=== PATIENT | female | born 1940 ===

== ENCOUNTER 2017-07-04 03:15 | Inpatient (IN) | payer MEDICARE, MEDICAID ==
--- NOTE | 2017-07-04 04:15 | ED PDOC ---
HPI: General Adult Chief Complaint (Provider): generalized body pain History Per: Patient Onset/Duration Of Symptoms: Waxing/Waning Current Symptoms Are (Timing): Still Present Severity: Moderate Location: migratory; neck, throat, abdomen, knees, feet Quality: aching <Dina Roy - Last Filed: 07/04/17 06:49> <Angel Lance Y - Last Filed: 07/04/17 07:01> Time Seen by Provider: 07/04/17 03:37 Chief Complaint (Nursing): Flu-like Symptoms Additional Complaint(s): Salima Hines is a 77 yo female with PMH hypertension, hyperlipidemia, prediabetes ( as per pt), who presented to ED today, 07/04/17 with generalized migratory body pains; was found to have elevated BP at triage. She states that the pain has been present for about 1 week, but it got worse today, which prompted her to come to the ED. States the pain moves from her neck/throat to her abdomen, so the knees, to feet. States she feels a "hotness" in her mouth, but denies that it feels like acid/heartburn. Admits to long standing constipation, as well as new onset with this problem nausea. Denies chest pain, shortness of breath, diarrhea, vomiting, urinary issues including burning. PMH: HTN, HLD, prediabetes Past Surg hx: tonsillectomy in childhood Fam hx: noncontributory Social hx: denies tobacco, alcohol, illicit drug use Allergies: aspirin Medications (brought to ED by pt): Carvedilol 3.125 mg twice daily HCTZ 12.5 mg once daily Clonidine 0.2 mg once daily Amlodipine 5 mg once daily Januvia 50 mg once daily Atorvastatin 40mg once daily Vitamin D-1,25 50,000 u once weekly (Dina Roy) Past Medical History - Medical History PMH: Diabetes (pre-diabetes as per pt), HTN, Hyperlipidemia - Surgical History Surgical History: Tonsillectomy - Family History Family History: States: No Known Family Hx - Living Arrangements Living Arrangements: With Friends/Others - Social History Alcohol: None Drugs: Denies <Dina Roy - Last Filed: 07/04/17 06:49> <Angel Lance - Last Filed: 07/04/17 07:01> Vital Signs: Last Vital Signs Temp 98.2 F 07/04/17 03:30 Pulse 86 07/04/17 06:27 Resp 16 07/04/17 06:27 BP 148/80 07/04/17 06:27 Pulse Ox 98 07/04/17 06:49 - Home Medications Home Medications: Ambulatory Orders Medication Instructions Recorded Atorvastatin [Lipitor] 40 mg PO BID 07/04/17 Carvedilol [Coreg] 3.125 mg PO BID 07/04/17 Ergocalciferol [Drisdol 50,000 50,000 units PO ASDIR 07/04/17 Intl Units Cap] Hydrochlorothiazide [Microzide] 12.5 mg PO DAILY 07/04/17 SITagliptin [Januvia] 50 mg PO DAILY 07/04/17 amLODIPine [Norvasc] 5 mg PO DAILY 07/04/17 cloNIDine [Catapres] 0.2 mg PO DAILY 07/04/17 - Allergies Allergies/Adverse Reactions: Allergies Allergy/AdvReac Type Severity Reaction Status Date / Time aspirin Allergy RASH Verified 07/04/17 03:30 Review of Systems Constitutional: Negative for: Fever, Chills, Weakness ENT: Positive for: Nose Pain, Throat Pain Cardiovascular: Negative for: Chest Pain, Palpitations, Light Headedness Respiratory: Negative for: Cough, Shortness of Breath, SOB with Exertion Gastrointestinal: Positive for: Nausea, Abdominal Pain, Constipation. Negative for: Vomiting, Diarrhea Genitourinary Female: Negative for: Dysuria Musculoskeletal: Positive for: Neck Pain, Leg Pain Skin: Negative for: Rash, Lesions Neurological: Positive for: Numbness. Negative for: Weakness, Dizziness <Dina Roy - Last Filed: 07/04/17 06:49> Physical Exam - Reviewed Vital Signs Reviewed: Yes - Physical Exam Appears: Positive for: No Acute Distress Head Exam: Positive for: NORMAL INSPECTION Skin: Positive for: Normal Color, Warm, Dry Eye Exam: Positive for: Normal appearance, EOMI ENT: Negative for: Pharyngeal Erythema Neck: Positive for: Normal, Painless ROM, Supple Cardiovascular/Chest: Positive for: Regular Rate, Rhythm Respiratory: Positive for: Normal Breath Sounds. Negative for: Accessory Muscle Use, Respiratory Distress Gastrointestinal/Abdominal: Positive for: Bowel Sounds, Soft, Tenderness ( epigastric) Back: Positive for: Normal Inspection. Negative for: L CVA Tenderness, R CVA Tenderness, Vertebral Tenderness Extremity: Positive for: Other (1+ pitting edema in b/l lower extremities). Negative for: Tenderness Neurologic/Psych: Positive for: Alert, Oriented <Dina Roy - Last Filed: 07/04/17 06:49> - Laboratory Results Result Diagrams: 07/04/17 04:05 07/04/17 04:05 - ECG O2 Sat by Pulse Oximetry: 98 <Dina Roy - Last Filed: 07/04/17 06:49> - Laboratory Results Result Diagrams: 07/04/17 04:05 07/04/17 04:05 <Angel Lance Y - Last Filed: 07/04/17 07:01> Medical Decision Making <Dina Roy - Last Filed: 07/04/17 06:49> <CasiAngel escalona Y - Last Filed: 07/04/17 07:01> Medical Decision Makin: BP 188/111 clonidine 0.2 mg tylenol 650 mg influenza swab cbc cmp ct abd/pelvis w/o po or iv contrast 0525: pt back from CT BP 170/94 0600: Na 120 K 3.4 CBC wnl influenza neg results of CT as documented above Spoke to Dr. Montoya; he will see patient in the morning. Stated to start 3% NS @ 10 cc/hr. Case discussed with Dr. Lance ([place]olly[place]ina) 0682 CT FINDINGS: Limitations: Lack of intravenous contrast. Motion artifact - mild. Lower thorax: Borderline cardiomegaly. Trace focal pericardial effusion. Coronary artery calcifications. ABDOMEN: Liver: Unremarkable. Gallbladder and bile ducts: Calcified gallstones. No significant ductal dilation. Pancreas: Unremarkable. No ductal dilation. Spleen: No splenomegaly. Adrenals: LEFT adrenal adenoma. Kidneys and ureters: No renal calculi. Punctate calcification/calculus within RIGHT kidney. No hydronephrosis. Stomach and bowel: Scattered diverticula within colon. No associated inflammatory stranding. Segmental areas of mild mural thickening vs underdistention of large bowel. No associated inflammatory stranding. No obstruction. Appendix: Normal caliber. No inflammation. PELVIS: Bladder: Unremarkable. No stones. Reproductive: Unremarkable as visualized. ABDOMEN and PELVIS: Intraperitoneal space: No significant fluid collection. No free air. Bones/joints: Mild degenerative changes of spine. No acute fracture. Soft tissues: Tiny umbilical hernia containing fat. Vasculature: Moderate atherosclerotic disease. No aneurysm. Lymph nodes: No pathologically enlarged lymph nodes. IMPRESSION: 1. Mild colitis versus underdistention. Clinical correlation is needed. 2. Cholelithiasis. 3. Incidental/non-acute findings are described above. Patient will be admitted for hyponatremia under Dr. Montoya (INPATIENT MED/SURG) * Labs * NS IV Scribe Attestation: Documented by Shanique Olivo acting as a scribe for Angel Lance MD. Scribe Attestation: All medical record entries made by the Scribe were at my direction and personally dictated by me. I have reviewed the chart and agree that the record accurately reflects my personal performance of the history, physical exam, medical decision making, and the department course for this patient. I have also personally directed, reviewed, and agree with the discharge instructions and disposition. (Angel Lance) Disposition - Patient ED Disposition Is Patient to be Admitted: Yes - Disposition Disposition Time: 06:41 <Dina Roy - Last Filed: 07/04/17 06:49> <Angel Lance - Last Filed: 07/04/17 07:01> - Clinical Impression Clinical Impression: Hyponatremia - Disposition Condition: FAIR
[2017-07-04 05:39] LABS: ALB/GLOB RATIO 1.3 (1.0-2.1); ALBUMIN 4.5 g/dL (3.5-5.0); ALT/SGPT 39 U/L (9-52); AST/SGOT 48 U/L (14-36); BLOOD UREA NITROGEN 11 mg/dl (7-17); CALCIUM 9.2 mg/dL (8.4-10.2); GFR AFRICAN-AMERICAN > 60; GFR NON-AFRICAN AMERICAN > 60
[2017-07-04 05:51] LABS: BASO % 0.2 % (0.0-2.0); EOS # 0.2 K/uL (0.0-0.7); EOS % 2.6 % (0.0-4.0); HEMOGLOBIN 12.9 g/dL (12.0-16.0); LYMPH # 1.8 K/uL (1.0-4.3); LYMPH % 23.4 % (20.0-40.0); MEAN CELL VOLUME 85.8 fl (81.0-99.0); MEAN CORPUSCULAR HEMOGLOBIN 30.1 pg (27.0-31.0); MEAN CORPUSCULAR HGB CONC 35.1 g/dL (33.0-37.0); MEAN PLATELET VOLUME 8.4 fl (7.2-11.7); MONO # 0.6 K/uL (0.0-0.8); MONO % 7.9 % (0.0-10.0); NEUT # 5.2 K/uL (1.8-7.0); NEUT % 65.9 % (50.0-75.0); NRBC % 0.1 % (0.0-0.0); RBC 4.27 Mil/uL (3.80-5.20); RED CELL DISTRIBUTION WIDTH 13.3 % (11.5-14.5); WHITE BLOOD COUNT 7.9 K/uL (4.8-10.8)
--- NOTE | 2017-07-04 06:15 | CT ---
EXAM: CT Abdomen and Pelvis Without Intravenous Contrast CLINICAL HISTORY: 77 years old, female; Pain; Abdominal pain; Generalized; Additional info: Abd pain TECHNIQUE: Axial computed tomography images of the abdomen and pelvis without intravenous contrast. All CT scans at this facility use one or more dose reduction techniques, viz.: automated exposure control; ma/kV adjustment per patient size (including targeted exams where dose is matched to indication; i.e. head); or iterative reconstruction technique. Coronal and sagittal reformatted images were created and reviewed. COMPARISON: CT - ABDOMEN^ABD ROUTINE W (ADULT) 2009-03-11 18:34 FINDINGS: Limitations: Lack of intravenous contrast. Motion artifact - mild. Lower thorax: Borderline cardiomegaly. Trace focal pericardial effusion. Coronary artery calcifications. ABDOMEN: Liver: Unremarkable. Gallbladder and bile ducts: Calcified gallstones. No significant ductal dilation. Pancreas: Unremarkable. No ductal dilation. Spleen: No splenomegaly. Adrenals: LEFT adrenal adenoma. Kidneys and ureters: No renal calculi. Punctate calcification/calculus within RIGHT kidney. No hydronephrosis. Stomach and bowel: Scattered diverticula within colon. No associated inflammatory stranding. Segmental areas of mild mural thickening vs underdistention of large bowel. No associated inflammatory stranding. No obstruction. Appendix: Normal caliber. No inflammation. PELVIS: Bladder: Unremarkable. No stones. Reproductive: Unremarkable as visualized. ABDOMEN and PELVIS: Intraperitoneal space: No significant fluid collection. No free air. Bones/joints: Mild degenerative changes of spine. No acute fracture. Soft tissues: Tiny umbilical hernia containing fat. Vasculature: Moderate atherosclerotic disease. No aneurysm. Lymph nodes: No pathologically enlarged lymph nodes. IMPRESSION: 1. Mild colitis versus underdistention. Clinical correlation is needed. 2. Cholelithiasis. 3. Incidental/non-acute findings are described above.
[2017-07-04 07:47] LABS: ALB/GLOB RATIO 1.2 (1.0-2.1); ALBUMIN 4.1 g/dL (3.5-5.0); ALT/SGPT 40 U/L (9-52); AST/SGOT 40 U/L (14-36); BLOOD UREA NITROGEN 10 mg/dl (7-17); GFR AFRICAN-AMERICAN > 60; GFR NON-AFRICAN AMERICAN > 60
[2017-07-04] MEDS: Sodium Chloride 3% 100 ML IV SCH ×2 (08:30→18:52)
[2017-07-04 12:30] LABS: T4 13.9 ug/dl (5.5-11.0)
[2017-07-04 14:29] LABS: SQUAMOUS EPITHIAL < 1 /hpf (0-5); URINE BILIRUBIN NEGATIVE (NEGATIVE); URINE BLOOD NEGATIVE (NEGATIVE); URINE CLARITY CLEAR (Clear); URINE COLOR STRAW (YELLOW); URINE GLUCOSE (UA) NEG (Normal); URINE LEUKOCYTE ESTERASE NEG Leu/uL (Negative); URINE NITRATE NEGATIVE (NEGATIVE); URINE PROTEIN 100 mg/dL (NEGATIVE); URINE UROBILINOGEN 0.2-1.0 mg/dL (0.2-1.0)
--- NOTE | 2017-07-04 16:04 | CP.PCM.HP ---
History of Present Illness - History of Present Illness History of Present Illness: CC: generalized body pain. 77 y/o F, came to [facility], [place] to be evaluated for Generalized body pain for a week, increasing on DOA with no relief. Pt c/o of Neck pain and sore throat, associated to dry cough, pain is continue, severe intensity 8:10, c/o of abdominal pain RLQ/LLQ associated to nausea, pain is sharp, severe intensity 8:10 and also c/o of b/l knees pain, constant, radiated to lower legs with the same intensity. Worsening symptom: Hx of HTN found with elevated BP 188/111. Sodium: 120 Aggravated factor: Increased pain with activity/exercise, unable to do any ADL. Pt denied: Fever, chills, vomiting, diarrhea, SOB, CP, palpitations, dizziness , night sweats, urinary symptoms, sick contact, travel out side the [place]. PMHx: HTN, High-Cholesterol, DMII, constipation. Abd/Pelv CT shows: Mild Colitis versus underdistention. Cholelithiasis Present on Admission - Present on Admission Any Indicators Present on Admission: No Review of Systems - Constitutional Constitutional: Weakness - EENT Eyes: Other (negative) Ears: Other (negative) Nose/Mouth/Throat: Nasal Congestion, Nose Pain, Sore Throat, Neck Pain - Cardiovascular Cardiovascular: Leg Edema, Rapid Heart Rate - Respiratory Respiratory: Cough (dry) - Gastrointestinal Gastrointestinal: Abdominal Pain, Constipation - Genitourinary Genitourinary: Other (negative) - Musculoskeletal Musculoskeletal: Muscle Weakness, Myalgias, Neck Pain - Integumentary Integumentary: Other (negative) - Neurological Neurological: Other (negative) - Psychiatric Psychiatric: Other (negative) - Endocrine Endocrine: Other (negative) - Hematologic/Lymphatic Hematologic: Other (negative) Past Patient History - Past Medical History & Family History Pertinent Family History: Unknown - Past Social History Smoking Status: Never Smoked Alcohol: None Drugs: Denies Home Situation {Lives}: Friends - CARDIAC Hx Cardiac Disorders: Yes Hx Hypercholesterolemia: Yes Hx Hypertension: Yes - PULMONARY Hx Respiratory Disorders: No - NEUROLOGICAL Hx Neurological Disorder: No - HEENT Hx HEENT Problems: No - RENAL Hx Chronic Kidney Disease: No - ENDOCRINE/METABOLIC Hx Endocrine Disorders: Yes Hx Diabetes Mellitus Type 2: Yes - HEMATOLOGICAL/ONCOLOGICAL Hx Blood Disorders: No - INTEGUMENTARY Hx Dermatological Problems: No - MUSCULOSKELETAL/RHEUMATOLOGICAL Hx Musculoskeletal Disorders: No Hx Falls: No - GASTROINTESTINAL Hx Gastrointestinal Disorders: No - GENITOURINARY/GYNECOLOGICAL Hx Genitourinary Disorders: No - PSYCHIATRIC Hx Psychophysiologic Disorder: No Hx Substance Use: No - SURGICAL HISTORY Hx Tonsillectomy: Yes - ANESTHESIA Hx Anesthesia: Yes Hx Anesthesia Reactions: No Meds Allergies/Adverse Reactions: Allergies Allergy/AdvReac Type Severity Reaction Status Date / Time aspirin Allergy RASH Verified 07/04/17 03:30 Physical Exam - Constitutional Appears: No Acute Distress - Head Exam Head Exam: NORMAL INSPECTION - Eye Exam Eye Exam: PERRL - Neck Exam Neck exam: Positive for: Normal Inspection - Respiratory Exam Respiratory Exam: NORMAL BREATHING PATTERN - Cardiovascular Exam Cardiovascular Exam: REGULAR RHYTHM - GI/Abdominal Exam GI & Abdominal Exam: Normal Bowel Sounds, Soft, Tenderness (epigastric area) - Extremities Exam Additional comments: Legs edema 1+ pitting - Back Exam Back exam: NORMAL INSPECTION - Neurological Exam Neurological exam: Alert, Oriented x3 Additional comments: No motor sensory deficit. - Psychiatric Exam Psychiatric exam: Normal Mood - Skin Skin Exam: Warm Results - Vital Signs Recent Vital Signs: Last Vital Signs Temp 97.6 F 07/04/17 15:43 Pulse 65 07/04/17 15:43 Resp 20 07/04/17 15:43 BP 159/66 H 07/04/17 15:43 Pulse Ox 98 07/04/17 15:43 reviewed J.P. - Labs Result Diagrams: 07/04/17 04:05 07/04/17 16:01 Labs: Laboratory Results - last 24 hr 07/04/17 07/04/17 07/04/17 04:05 04:05 04:05 WBC 7.9 RBC 4.27 Hgb 12.9 Hct 36.6 MCV 85.8 MCH 30.1 MCHC 35.1 RDW 13.3 Plt Count 235 MPV 8.4 Neut % (Auto) 65.9 Lymph % (Auto) 23.4 [place] % (Auto) 7.9 Eos % (Auto) 2.6 Baso % (Auto) 0.2 Neut # 5.2 Lymph # 1.8 [place] # 0.6 Eos # 0.2 Baso # 0.0 Sodium 120 L* Potassium 3.4 L Chloride 81 L Carbon Dioxide 27 Anion Gap 15 BUN 11 Creatinine 0.6 L Est GFR ( Amer) > 60 Est GFR (Non-Af Amer) > 60 POC Glucose (mg/dL) Random Glucose 117 H Calcium 9.2 Total Bilirubin 0.9 AST 48 H ALT 39 Alkaline Phosphatase 74 Total Protein 8.0 Albumin 4.5 Globulin 3.6 Albumin/Globulin Ratio 1.3 Triglycerides Cholesterol LDL Cholesterol Direct HDL Cholesterol Thyroxine (T4) TSH 3rd Generation Urine Color Urine Clarity Urine pH Ur Specific [place] Urine Protein Urine Glucose (UA) Urine Ketones Urine Blood Urine Nitrate Urine Bilirubin Urine Urobilinogen Ur Leukocyte Esterase Urine RBC (Auto) Urine Microscopic WBC Ur Squamous Epith Cells Ur Random Creatinine Influenza Typ A,B (EIA) Negative for flu a/b 07/04/17 07/04/17 07/04/17 07:00 07:39 12:02 WBC RBC Hgb Hct MCV MCH MCHC RDW Plt Count MPV Neut % (Auto) Lymph % (Auto) [place] % (Auto) Eos % (Auto) Baso % (Auto) Neut # Lymph # [place] # Eos # Baso # Sodium 120 L* Potassium 3.3 L Chloride 83 L Carbon Dioxide 26 Anion Gap 14 BUN 10 Creatinine 0.6 L Est GFR ( Amer) > 60 Est GFR (Non-Af Amer) > 60 POC Glucose (mg/dL) 103 Random Glucose 106 H Calcium 9.0 Total Bilirubin 0.7 AST 40 H ALT 40 Alkaline Phosphatase 68 Total Protein 7.4 Albumin 4.1 Globulin 3.4 Albumin/Globulin Ratio 1.2 Triglycerides 44 Cholesterol 191 LDL Cholesterol Direct 74 HDL Cholesterol 90 H Thyroxine (T4) 13.9 H TSH 3rd Generation 1.41 Urine Color Urine Clarity Urine pH Ur Specific [place] Urine Protein Urine Glucose (UA) Urine Ketones Urine Blood Urine Nitrate Urine Bilirubin Urine Urobilinogen Ur Leukocyte Esterase Urine RBC (Auto) Urine Microscopic WBC Ur Squamous Epith Cells Ur Random Creatinine Influenza Typ A,B (EIA) 07/04/17 07/04/17 07/04/17 14:10 14:15 15:39 WBC RBC Hgb Hct MCV MCH MCHC RDW Plt Count MPV Neut % (Auto) Lymph % (Auto) [place] % (Auto) Eos % (Auto) Baso % (Auto) Neut # Lymph # [place] # Eos # Baso # Sodium Potassium Chloride Carbon Dioxide Anion Gap BUN Creatinine Est GFR ( Amer) Est GFR (Non-Af Amer) POC Glucose (mg/dL) 150 H Random Glucose Calcium Total Bilirubin AST ALT Alkaline Phosphatase Total Protein Albumin Globulin Albumin/Globulin Ratio Triglycerides Cholesterol LDL Cholesterol Direct HDL Cholesterol Thyroxine (T4) TSH 3rd Generation Urine Color Straw Urine Clarity Clear Urine pH 7.0 Ur Specific [place] < 1.005 Urine Protein 100 Urine Glucose (UA) Neg Urine Ketones Trace Urine Blood Negative Urine Nitrate Negative Urine Bilirubin Negative Urine Urobilinogen 0.2-1.0 Ur Leukocyte Esterase Neg Urine RBC (Auto) 1 Urine Microscopic WBC < 1 Ur Squamous Epith Cells < 1 Ur Random Creatinine 32.0 Influenza Typ A,B (EIA) reviewed J.P. - EKG Data EKG comments: reviewed J.P. - Imaging and Cardiology CT scan - abdomen Status: Report reviewed by me (Alexei.) CT scan - pelvis Status: Report reviewed by me (Kerri) Assessment & Plan (1) Myalgia Status: Acute Priority: High (2) Hyponatremia Status: Acute Priority: High (3) HTN (hypertension) Status: Chronic Priority: High (4) Diabetes mellitus type II, controlled Status: Chronic Priority: Medium (5) High cholesterol Status: Chronic Priority: Medium - Assessment and Plan (Free Text) Plan: F/U Brain MRI, CX, continue with NS 3%, Norvasc 5 mg, Lovenox, Tylenol and rest of Tx. - Date & Time Date: 07/04/17 Time: 11:30
[2017-07-04] MEDS ORDERED: Pneumococcal 23-Valent Vaccine IM ONE (17:09)
--- NOTE | 2017-07-04 17:21 | CARD ---
APPROVED REPORT EKG Measurement Heart [id number] <Conclusion> Normal sinus rhythm Possible Left atrial enlargement Left ventricular hypertrophy Abnormal ECG
[2017-07-04 17:24] LABS: BLOOD UREA NITROGEN 11 mg/dl (7-17); CALCIUM 9.2 mg/dL (8.4-10.2); GFR AFRICAN-AMERICAN > 60; GFR NON-AFRICAN AMERICAN > 60
[2017-07-04] MEDS ORDERED: Sodium Chloride 0.9% 50 ML IV ONE (17:44)
[2017-07-04] MEDS ORDERED: Gadodiamide 287 MG/ML VIAL (15ML) IV ONE (17:44)
[2017-07-05] MEDS: Sodium Chloride 3% 100 ML IV SCH (03:00)
[2017-07-05 05:37] LABS: ALB/GLOB RATIO 1.2 (1.0-2.1); ALBUMIN 4.1 g/dL (3.5-5.0); ALT/SGPT 38 U/L (9-52); AST/SGOT 40 U/L (14-36); BLOOD UREA NITROGEN 10 mg/dl (7-17); CALCIUM 9.2 mg/dL (8.4-10.2); GFR AFRICAN-AMERICAN > 60; GFR NON-AFRICAN AMERICAN > 60; HDL CHOLESTEROL 71 MG/DL (30-70)
[2017-07-05 05:47] LABS: LDL CHOLESTEROL 66 mg/dL (0-129)
[2017-07-05 05:53] LABS: T4 11.8 ug/dl (5.5-11.0)
[2017-07-05] MEDS: Enoxaparin 40 mg Syringe SC SCH ×2 (09:57→14:37)
--- NOTE | 2017-07-05 11:23 | RAD ---
PROCEDURE: CHEST RADIOGRAPH, 1 VIEW HISTORY: HTN COMPARISON: Chest radiograph dated 03/30/2011 FINDINGS: LUNGS: Clear. PLEURA: No pneumothorax or pleural fluid seen. CARDIOVASCULAR: Atherosclerotic aortic calcifications. Stable nonspecific right hilar fullness. OSSEOUS STRUCTURES: Unchanged. VISUALIZED UPPER ABDOMEN: Normal. OTHER FINDINGS: None. IMPRESSION: No active disease. Stable nonspecific right hilar fullness.
--- NOTE | 2017-07-05 16:34 | CP.PCM.PN ---
Subjective - Subjective Subjective: no AD , N/C Objective - Vital Signs/Intake and Output Vital Signs (last 24 hours): Temp Pulse Resp BP Pulse Ox 98.2 F 78 16 149/68 98 07/05/17 16:16 07/05/17 16:16 07/05/17 16:16 07/05/17 16:16 07/05/17 16:16 Intake and Output: 07/05/17 07/05/17 06:59 18:59 Intake Total 520 Balance 520 - Medications Medications: Current Medications Acetaminophen (Tylenol 325mg Tab) 650 mg PO Q4 PRN PRN Reason: Pain, Mild (1-3) Last Admin: 07/05/17 14:39 Dose: 650 mg Amlodipine Besylate (Norvasc) 5 mg PO DAILY [facility] Last Admin: 07/05/17 09:57 Dose: 5 mg Carvedilol (Coreg) 3.125 mg PO BID [facility] Last Admin: 07/05/17 10:00 Dose: 3.125 mg Docusate Sodium (Colace) 100 mg PO BID [facility] Last Admin: 07/05/17 09:56 Dose: 100 mg Enoxaparin Sodium (Lovenox) 40 mg SC DAILY [facility] PRN Reason: Protocol Last Admin: 07/05/17 14:37 Dose: Not Given Fluticasone Propionate (Flonase) 1 spr FLORI BID [facility] Last Admin: 07/05/17 09:57 Dose: 1 spr - Labs Labs: 07/04/17 04:05 07/05/17 04:25 - Constitutional Appears: No Acute Distress - Head Exam Head Exam: NORMAL INSPECTION - Eye Exam Eye Exam: PERRL - ENT Exam ENT Exam: Normal Exam - Neck Exam Neck Exam: Normal Inspection - Respiratory Exam Respiratory Exam: Clear to Ausculation Bilateral - Cardiovascular Exam Cardiovascular Exam: REGULAR RHYTHM - GI/Abdominal Exam GI & Abdominal Exam: Soft, Normal Bowel Sounds - Extremities Exam Extremities Exam: Normal Inspection - Back Exam Back Exam: NORMAL INSPECTION - Neurological Exam Neurological Exam: Alert, CN II-XII Intact. absent: Motor Sensory Deficit - Psychiatric Exam Psychiatric exam: Normal Affect, Normal Mood - Skin Skin Exam: Warm Assessment and Plan (1) Myalgia Status: Acute (2) Hyponatremia Status: Acute (3) HTN (hypertension) Status: Chronic (4) Diabetes mellitus type II, controlled Status: Chronic (5) High cholesterol Status: Chronic - Assessment and Plan (Free Text) Assessment: Patient refused MRI Brain, CXR R hilar fullness , Na 130, T4 elevated, f/u CT Head and Chest with contrast
[2017-07-05] MEDS ORDERED: Magnesium Citrate Oral SOL (300 ml) PO ONE (17:01)
[2017-07-06 06:03] LABS: BLOOD UREA NITROGEN 11 mg/dl (7-17); CALCIUM 9.4 mg/dL (8.4-10.2); GFR AFRICAN-AMERICAN > 60; GFR NON-AFRICAN AMERICAN > 60
[2017-07-06] MEDS ORDERED: Iohexol 300 100 ML IJ ONE (08:08)
[2017-07-06] MEDS ORDERED: Sodium Chloride 0.9% 50 ML IV ONE (08:09)
[2017-07-06] MEDS: Enoxaparin 40 mg Syringe SC SCH (09:56)
--- NOTE | 2017-07-06 10:36 | CT ---
PROCEDURE: CT HEAD WITH CONTRAST HISTORY: Hyponatremia COMPARISON: 03/10/2009. TECHNIQUE: Axial computed tomography images were obtained through the head/brain with intravenous contrast. Contrast dose: 100 mL Omnipaque 300 Radiation dose: Total exam DLP = 843.43 mGy-cm. This CT exam was performed using one or more of the following dose reduction techniques: Automated exposure control, adjustment of the mA and/or kV according to patient size, and/or use of iterative reconstruction technique. FINDINGS: HEMORRHAGE: No intracranial hemorrhage. BRAIN: There is an old lacunar infarction in the right thalamus. There are mild chronic microangiopathic changes. There is no mass, mass effect or abnormal extra-axial fluid collection. There is no abnormal parenchymal or leptomeningeal enhancement. VENTRICLES: There is moderate age-related global parenchymal volume loss and proportionate enlargement of the ventricles and cortical sulci. . CALVARIUM: The skull base and calvarium are normal. PARANASAL SINUSES: Predominantly clear. MASTOID AIR CELLS: Predominantly clear. OTHER FINDINGS: None. IMPRESSION: 1. No acute intracranial abnormality. 2. 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 3. Mild chronic microangiopathic changes and moderate age-related global parenchymal volume loss.
[2017-07-06 12:23] VITALS: O2SAT 97
--- NOTE | 2017-07-06 12:59 | CP.PCM.PN ---
Subjective - Date & Time of Evaluation Date of Evaluation: 07/06/17 Time of Evaluation: 09:30 - Subjective Subjective: F/U Myalgia Objective - Vital Signs/Intake and Output Vital Signs (last 24 hours): Temp Pulse Resp BP Pulse Ox 97.9 F 82 20 166/75 H 97 07/06/17 12:00 07/06/17 12:00 07/06/17 12:00 07/06/17 12:00 07/06/17 12:00 - Medications Medications: Current Medications Acetaminophen (Tylenol 325mg Tab) 650 mg PO Q4 PRN PRN Reason: Pain, Mild (1-3) Last Admin: 07/05/17 14:39 Dose: 650 mg Amlodipine Besylate (Norvasc) 5 mg PO DAILY [facility] Last Admin: 07/06/17 09:55 Dose: 5 mg Carvedilol (Coreg) 3.125 mg PO BID [facility] Last Admin: 07/06/17 09:56 Dose: 3.125 mg Docusate Sodium (Colace) 100 mg PO BID [facility] Last Admin: 07/06/17 09:54 Dose: 100 mg Enoxaparin Sodium (Lovenox) 40 mg SC DAILY [facility] PRN Reason: Protocol Last Admin: 07/06/17 09:56 Dose: 40 mg Fluticasone Propionate (Flonase) 1 spr FLORI BID [facility] Last Admin: 07/06/17 09:54 Dose: 1 spr - Labs Labs: 07/04/17 04:05 07/06/17 04:15 - Constitutional Appears: No Acute Distress - Head Exam Head Exam: NORMAL INSPECTION - Eye Exam Eye Exam: PERRL - ENT Exam ENT Exam: Normal Exam - Neck Exam Neck Exam: Normal Inspection - Respiratory Exam Respiratory Exam: Clear to Ausculation Bilateral - Cardiovascular Exam Cardiovascular Exam: REGULAR RHYTHM - GI/Abdominal Exam GI & Abdominal Exam: Soft, Normal Bowel Sounds - Extremities Exam Extremities Exam: Normal Inspection - Back Exam Back Exam: NORMAL INSPECTION - Neurological Exam Neurological Exam: Alert, CN II-XII Intact. absent: Motor Sensory Deficit - Psychiatric Exam Psychiatric exam: Normal Affect, Normal Mood - Skin Skin Exam: Warm Assessment and Plan (1) Myalgia Status: Acute (2) Hyponatremia Status: Acute (3) HTN (hypertension) Status: Chronic (4) Diabetes mellitus type II, controlled Status: Chronic (5) High cholesterol Status: Chronic
--- NOTE | 2017-07-06 14:18 | CT ---
PROCEDURE: CT Chest with contrast HISTORY: CXR wide mediastinum , hyponatremia COMPARISON: Plain radiographs from 07/04/2017. CT chest from 01/27/2011 CT abdomen from 03/11/2009. TECHNIQUE: Contiguous axial images were obtained through the chest with intravenous contrast enhancement. Sagittal and coronal reconstructions were performed. IV contrast: 100 cc Omnipaque 300 Radiation dose (DLP): 287.93 mGy-cm. This CT exam was performed using one or more of the following dose reduction techniques: Automated exposure control, adjustment of the mA and/or kV according to patient size, and/or use of iterative reconstruction technique. FINDINGS: LUNGS: The lungs are well inflated and clear. There is scattered centrilobular emphysema and dependent atelectasis in the posterior lower lobes. There is a 2 mm nodule in the peripheral right upper lobe (series 3, image 22). There is no focal consolidation or mass. MEDIASTINUM: The aorta is not dilated. The heart is normal in size. No pericardial effusion. There atherosclerotic coronary artery calcifications. Subcentimeter mediastinal lymph nodes are likely reactive in etiology. No hilar mass or pathologic lymphadenopathy. PLEURA: No pleural fluid. No pneumothorax. BONES: No fracture. No destructive lesion. UPPER ABDOMEN: There is mild thickening of the adrenal glands and is stable 15 mm solid nodule in the left adrenal gland, stable dating back to 2008 and most certainly benign. OTHER FINDINGS: There is a solitary 12 mm nodule in the upper pole of the right thyroid lobe. IMPRESSION: 1. No evidence of consolidation, mass, pleural effusions or pneumothorax. 2. No evidence of a right hilar mass or adenopathy. 3. Stable 15 mm presumable adenoma in the left adrenal gland. 4. 4 mm nodule in the upper pole of the right thyroid lobe. If not already performed, dedicated thyroid ultrasound on a nonemergent basis is recommended for further characterization.
[2017-07-06 15:50] VITALS: PULSE 85; RESP 18; TEMP 98.8
[2017-07-06 17:53] VITALS: BP 178/84
== END 2017-07-06 20:00 | disposition home or self-care (01) | DRG 641 ==
LOC: H.ER 03:15 → H.ERHOLD 06:25 → H.TEL 10:10
PROVIDERS: ADMIT Internal Medicine Pulmonary Disease; ATTEND Internal Medicine Pulmonary Disease
PROC: 3E0234Z Introduction of Serum, Toxoid and Vaccine into Muscle, Percutaneous Approach (ICD-10-PCS; principal; 2017-07-04)
DX: E87.1 Hypo-osmolality and hyponatremia (principal); E11.9 Type 2 diabetes mellitus without complications; M79.1 Myalgia; I10 Essential (primary) hypertension; E78.5 Hyperlipidemia, unspecified; E78.00 Pure hypercholesterolemia, unspecified; Z23 Encounter for immunization; Z88.6 Allergy status to analgesic agent; K59.00 Constipation, unspecified